=== PATIENT | female | born 1945 | race African-American/Black ===

== ENCOUNTER 2022-08-07 16:58 | Inpatient (IN) | payer MEDICARE, OTHER ==
[~2022-08-07] VITALS: Ht 152.4 cm; Wt 83.0 kg
[2022-08-07] MEDS ORDERED: LEVO100T10 PO (17:31)
[2022-08-07] MEDS ORDERED: MIRT-94 PO (17:31)
[2022-08-07] MEDS ORDERED: RIVA10TA PO (17:31)
[2022-08-07] MEDS ORDERED: ONDA4TAB11 PO (17:31)
[2022-08-07] MEDS ORDERED: POTA-88 PO (17:31)
[2022-08-07] MEDS ORDERED: ROSU10TA2 PO (17:31)
[2022-08-07] MEDS ORDERED: PRIM250T32 PO (17:31)
[2022-08-07] MEDS ORDERED: FLUO20CA42 PO (17:31)
[2022-08-07] MEDS ORDERED: [UNRECOGNIZED DRUG - CODE] PO (17:31)
[2022-08-07] MEDS ORDERED: METO25TA6 PO (17:31)
--- NOTE | 2022-08-07 17:34 | NUR ---
PT IS IN ROOM #1B. DR FERNANDEZ EVALUATED THE PT.
[2022-08-07] MEDS: METOPROLOL TARTRATE 25 MG TABLET PO SCH (18:30)
--- NOTE | 2022-08-07 19:03 | NUR ---
REPORT WAS GIVEN TO M[facility] RN. PT WILL BE TRANSFERED TO U ROOM #138B AFTER 193. REPORT WAS GIVEN TO SEA FOAM KISS MAKER BUILDING EQUIPMENT OPERATOR.
--- NOTE | 2022-08-07 19:46 | NUR ---
Pt. admitted to [facility] Belongs List completed Mohini RN, Pasha RN aware of patient's arrival
--- NOTE | 2022-08-07 20:00 | NUR ---
GPS ADMISSION NOTE : Patient is a 77 year old female, brought to the ED from [facility]. The patient is on a 5150 for DTS. Per the hold, the patient verbalized that she doesn't feel safe and " Cant be honest with anyone " about suicidal thoughts because " I don't want a 5150 ". Upon face to face evaluation, this patient was anxious, disorganized and suspious. The patient refused to sign any papers, was argumentative about the unit rules and adamant that " I never said that I wanted to hurt myself. That's a lie ". Multiple medical problems noted in the chart, including Polio, wheelchair bound, fibromyalgia, HTN, DM, depression and alcoholism to name a few. The patients belongings were inventoried and a Patients Rights Handbook along with The Patient Advisement were provided. VS stable, safety stratiges remain in place. No SI at this time.
[2022-08-07] MEDS: ATORVASTATIN 20 MG TABLET PO SCH (21:00)
[2022-08-07] MEDS ORDERED: MAGNESIUM HYDROXIDE 30 ML LIQUID UDC PO PRN (22:15)
[2022-08-07] MEDS ORDERED: MAG HYDROX/AL HYDROX/SIMETH 30 ML LIQUID UDC PO PRN (22:15)
[2022-08-07 22:20] VITALS: BP 123/69
[2022-08-08] MEDS: LORAZEPAM 1 MG TABLET PO PRN (06:21)
[2022-08-08] MEDS: LEVOTHYROXINE SODIUM 100 MCG TABLET PO SCH (06:21)
[2022-08-08 07:36] VITALS: BP 108/46
[2022-08-08] MEDS ORDERED: RIVAROXABAN 10 MG TABLET PO SCH (09:00)
[2022-08-08] MEDS: METOPROLOL TARTRATE 25 MG TABLET PO SCH ×3 (09:21→20:12)
[2022-08-08] MEDS: ACETAMINOPHEN 325 MG TABLET PO PRN ×2 (09:56→20:16)
[2022-08-08] MEDS: THIAMINE HCL 100 MG TABLET PO SCH (10:22)
--- NOTE | 2022-08-08 12:19 | NUR ---
WING Initial Discharge Note: Pt currently resides alone at home located at [address] [place] [phone] ([phone]). Pt stated she wants to return home on her own upon discharge. WING will continue to work with pt, family and MD to ensure a safe and proper discharge plan.
[2022-08-08 12:33] LABS: THYROID STIMULATING HORMONE 2.381 mIU/mL (0.358-3.740)
--- NOTE | 2022-08-08 14:20 | NUR ---
GPS: Nursing Notes: Destructive Behavior To Self: Patient is awake and responding to her name, gets easily anxious when redirected, poor grooming, unkempt appearance, argumentative, stated "The 5150 is a lie.. I don't want to kill myself..", upper extremities tremors - stated "The doctor told me to take my medication with alcohol, so the tremors would stop.." impaired judgment, needs prompting to participate in therapeutic groups, unable to formulate a viable plan for self care, denies SI, continue to monitor for safety, continue with treatment plan.
--- NOTE | 2022-08-08 14:37 | NUR ---
Firearms Report: Window Shade Cutter And Mounter completed and submitted a DOJ firearms report for 5150 a danger to self certifications. A copy of report has been placed in patient chart.
[2022-08-08 16:12] VITALS: BP 126/58
[2022-08-08] MEDS: RIVAROXABAN 10 MG TABLET PO SCH (17:50)
--- NOTE | 2022-08-08 17:52 | NUR ---
GPS: Nursing Notes: Refusing Xarelto: Patient was about to take her medication when suddenly she paused and stated "I remember now, I cannot take Xarelto because I fell.. I will talk to the doctor..", explained the pros and cons of the medication, but continue to refuse her medication, continue to monitor for safety, continue with treatment plan.
[2022-08-08 19:37] VITALS: BP 112/52
[2022-08-08] MEDS: ATORVASTATIN 20 MG TABLET PO SCH (20:11)
--- NOTE | 2022-08-08 20:51 | NUR ---
GPS: Pt.is pleasant,nice and cooperative so far. Due bedtime meds taken without any problems. Denies wanting to hurt self when asked. Needs attended. Will continue to monitor.
[2022-08-09] MEDS: LEVOTHYROXINE SODIUM 100 MCG TABLET PO SCH (06:05)
[2022-08-09 07:45] VITALS: BP 124/58
[2022-08-09] MEDS: MULTIVITAMINS,THERAPEUTIC TABLET PO SCH (08:42)
[2022-08-09] MEDS: THIAMINE HCL 100 MG TABLET PO SCH (08:42)
[2022-08-09] MEDS: SERTRALINE HCL 50 MG TABLET PO SCH (08:43)
[2022-08-09] MEDS: METOPROLOL TARTRATE 25 MG TABLET PO SCH ×2 (08:49→20:48)
[2022-08-09] MEDS: ACETAMINOPHEN 325 MG TABLET PO PRN (08:50)
--- NOTE | 2022-08-09 09:55 | NUR ---
SW Discharge Update: Pt continues to state she wants to return home located at [address] [place], [place] [id number] on her own upon discharge where she resides alone. Pt is refusing home health services. Pt stated she has no family contact and has been on her own for a long time. In addition, pt stated she refuses fdc facility and other services as well.
[2022-08-09 16:10] VITALS: BP 135/48
[2022-08-09] MEDS: RIVAROXABAN 10 MG TABLET PO SCH (17:17)
--- NOTE | 2022-08-09 17:21 | NUR ---
GPS: Nursing Notes: Destructive Behavior To Self: Patient is awake and responding to her name, depressed mood and anxious affect, argumentative at times, selectively refusing her medications, stated "There is nothing wrong with my heart... And Xarelto, I do not take this medication..", explained the pros and cons of medications, but continue to refuse the medications, needs prompting to participate in therapeutic groups, moving around the unit on her w/c, unable to formulate a viable plan for self care, continue to monitor for safety, continue with treatment plan.
[2022-08-09] MEDS: ATORVASTATIN 20 MG TABLET PO SCH (20:47)
[2022-08-09 21:45] VITALS: BP 147/52
[2022-08-10] MEDS: ACETAMINOPHEN 325 MG TABLET PO PRN (00:18)
[2022-08-10] MEDS: ZOLPIDEM 5 MG TABLET PO PRN (00:18)
--- NOTE | 2022-08-10 00:18 | NUR ---
Pt requested medication for help with falling asleep, and for pain in the back of her head. Pt stated, "they have not given me any pain medication for this problem that I've had for a long time now, and they have never diagnosed me with what this problem is." 07/04 P/L. Gave Ambien 5mg for insomnia, and Tylenol 650mg for mild pain relief. Safety measures in place. Will continue to monitor.
[2022-08-10] MEDS: LEVOTHYROXINE SODIUM 100 MCG TABLET PO SCH (06:28)
[2022-08-10 07:30] VITALS: BP 119/51
[2022-08-10] MEDS: METOPROLOL TARTRATE 25 MG TABLET PO SCH ×2 (08:24→21:05)
[2022-08-10] MEDS: THIAMINE HCL 100 MG TABLET PO SCH (08:24)
[2022-08-10] MEDS: MULTIVITAMINS,THERAPEUTIC TABLET PO SCH (08:24)
[2022-08-10] MEDS: SERTRALINE HCL 50 MG TABLET PO SCH (08:25)
--- NOTE | 2022-08-10 11:09 | NUR ---
GPS Nursing notes: 14 day hold Certification: Patient place on a 5250, certification given to patient and explained. Patient was informed that a certification reviewe hearing will be held with in four days. Also, patient's right advocate will call to provide orthodontic assistant on answering his questions. The court has been notified of this certification via [facility] portal on this day.
[2022-08-10 15:15] VITALS: BP 122/59
[2022-08-10] MEDS: RIVAROXABAN 10 MG TABLET PO SCH (18:00)
--- NOTE | 2022-08-10 18:08 | NUR ---
Received pt in room awake and responding to her name. Pt is depressed, isolative and stays in her room for most of the day. Pt has poor insight .Pt is compliant with medications. Pt has unkempt appearance and refuses to shower. Pt is unable to formulate a viable plan for self care. Pt denies SI and made a verbal contract for safety with this leader writer . Pt stated "I came here to get help with my appointments not because I'm depressed or suicidal". " I need help scheduling an appointment with a dentist". " I need help finding a good complex care nurse practitioner that wont steal from me". Reassurance and emotional support provided.Safety measures still in place for safety. Continue to monitor for safety, continue with treatment plan.
--- NOTE | 2022-08-10 18:44 | NUR ---
Pt is selective with medications, pt took morning medications and refuse evening medications. Pt can be argumentative at times. Pt was argumentative when explaining the importance of being compliant with medications. Reassurance provided.
[2022-08-10 20:00] VITALS: BP 123/56
[2022-08-10] MEDS: ATORVASTATIN 20 MG TABLET PO SCH (21:05)
[2022-08-11] MEDS: ZOLPIDEM 5 MG TABLET PO PRN (00:22)
[2022-08-11] MEDS: LEVOTHYROXINE SODIUM 100 MCG TABLET PO SCH (06:11)
[2022-08-11 07:30] VITALS: BP 126/47
[2022-08-11] MEDS: MULTIVITAMINS,THERAPEUTIC TABLET PO SCH (09:00)
[2022-08-11] MEDS: THIAMINE HCL 100 MG TABLET PO SCH (09:00)
[2022-08-11] MEDS: SERTRALINE HCL 50 MG TABLET PO SCH (09:00)
[2022-08-11] MEDS: METOPROLOL TARTRATE 25 MG TABLET PO SCH ×2 (09:00→20:42)
[2022-08-11 12:55] VITALS: BP 163/72
[2022-08-11 13:00] VITALS: BP 182/77
--- NOTE | 2022-08-11 13:00 | NUR ---
Patient states that she is having a chest pain rated 10 on the scale of 1 to 10. Distributor Operator was informed and ordered HS Troponin, Hydrocodone 1 tab PO Q6PRN, Nitroglycerin 0.4 mg SL, EKG, D- Dimer, BMP, CBC.
--- NOTE | 2022-08-11 13:13 | NUR ---
Patient had court hearing today, and tobacco feeder catcher Betsy Mcleod gave 14 Day hold probable cause for GD.
[2022-08-11] MEDS ORDERED: NITROGLYCERIN 0.4 MG/TAB BOTTLE SL PRN (13:15)
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
[2022-08-11 13:32] LABS: HEMATOCRIT 39.3 % (31.2-41.9); MEAN CORPUSCULAR VOLUME 87.2 fL (75.5-95.3); PLATELET COUNT (AUTO) 353 K/uL (179-408)
[2022-08-11 13:43] LABS: CARBON DIOXIDE 28 mmol/L (21-32); CHLORIDE 100 mmol/L (98-107); GLUCOSE 105 mg/dL (74-106); UREA NITROGEN, BLOOD 24 mg/dL (7-18)
[2022-08-11 15:30] VITALS: BP 155/76
[2022-08-11] MEDS: HYDROCODONE/APAP 5-325MG TABLET PO PRN (15:33)
[2022-08-11 16:00] VITALS: BP 144/72
[2022-08-11] MEDS: RIVAROXABAN 10 MG TABLET PO SCH (18:00)
--- NOTE | 2022-08-11 19:40 | NUR ---
Pt is argumentative , labile, intrusive and manipulative. Pt gets easily irritable with staff when she does not gets her way. Pt is not compliant with medication and questions each of her medications and states " i do not take those medications" My doctor told me not to take them" . Pt manipulates her roommate in to not taking her medications and sends her to ask staff for snack or water for her , instead of her asking for her self. Reassurance and emotional support provided. Safety measures still in place. Continue to monitor for safety, continue with treatment plan.
[2022-08-11 19:53] VITALS: BP 126/63
[2022-08-11] MEDS: ATORVASTATIN 20 MG TABLET PO SCH (20:42)
[2022-08-12] MEDS: METOPROLOL TARTRATE 25 MG TABLET PO SCH ×2 (01:20→21:00)
--- NOTE | 2022-08-12 02:12 | NUR ---
Patient has been anxious, manipulative, demanding and intrusive. This patient was heard telling the room mate"Don't take the medications from these people. They are trying to hurt you. If you change rooms, we are not friends anymore. ". This underwriter moved the room mate per request and to provide a quieter environment for both. Soon after that, the patient had a anxiety attack, was asking for this med and that, cold cloth, to be taken to the ED, etc. When this underwriter tried to get her VS in order to give the " Metoprol now, or I am going to " ! The patient proceeded to rip the cuff off her arm , in a tantrum like fashion, throw the washcloth on the floor , and climbed into bed. The VS were obtained and they were 133/90, HR 79. The patient eventually calmed down ,after a lengthy attention seeking episode. Safety Stratiges are in place. The patient continues to refuse medications for anxiety or sleep and also tries to manipulate the staff and other patient's , whenever possible.
[2022-08-12] MEDS: LEVOTHYROXINE SODIUM 100 MCG TABLET PO SCH (06:41)
[2022-08-12 07:09] VITALS: BP 97/55
[2022-08-12] MEDS: THIAMINE HCL 100 MG TABLET PO SCH (08:56)
[2022-08-12] MEDS: MULTIVITAMINS,THERAPEUTIC TABLET PO SCH (08:56)
[2022-08-12] MEDS: SERTRALINE HCL 50 MG TABLET PO SCH ×2 (08:56→09:00)
--- NOTE | 2022-08-12 14:10 | NUR ---
Nursing- Uses wheel chair to roam around safety reviewed emphasized. Selective with routine meds. claimed she does not take any Psych med. she wants to leave, she does not belong here, she can take care of herself, req. to take a taxi ,drop by the bank and good to go per pt. Encouraged to attend her group activity , refused. Denies any discomfort, no chest pain
[2022-08-12 15:16] VITALS: BP 119/51
[2022-08-12 20:20] VITALS: BP 137/49
[2022-08-12] MEDS: ATORVASTATIN 20 MG TABLET PO SCH (20:53)
[2022-08-12] MEDS: RIVAROXABAN 10 MG TABLET PO SCH (21:00)
--- NOTE | 2022-08-12 21:07 | NUR ---
Patient refused xarelto and metoprolol meds, patient stated "she only take metoprolol when she needs it", and scared to take xarelto meds afraid to bleed, explained to the patient that she needs both meds for her heart problem and blood pressure, strongly refused, get agitated, cont to monitor.
--- NOTE | 2022-08-13 05:46 | NUR ---
Patient stayed in her room most the shift, calm at this time, no complains of pain, patient brp, remains uncooperative with medications, cont to monitor.
[2022-08-13] MEDS: LEVOTHYROXINE SODIUM 100 MCG TABLET PO SCH (06:41)
[2022-08-13 07:54] VITALS: BP 146/51
[2022-08-13] MEDS: MULTIVITAMINS,THERAPEUTIC TABLET PO SCH (08:36)
[2022-08-13] MEDS: METOPROLOL TARTRATE 25 MG TABLET PO SCH ×2 (08:36→20:33)
[2022-08-13] MEDS: THIAMINE HCL 100 MG TABLET PO SCH (08:37)
[2022-08-13] MEDS: SERTRALINE HCL 50 MG TABLET PO SCH (08:45)
--- NOTE | 2022-08-13 09:00 | NUR ---
Nursing - Hesitancy taking her routine am medications , selective witj medications , administered ,reviewed by the Quality Assurance Coach (from [facility]) with their Alarm Installation Technician. Alert, oriented , interactive , making her needs known. Stays in bed most of the time during morning, able to transfers self ind. wheel chair to bed . Ind. with wheel chair propulsion. Safety continue to emphasized, patient verbalized understanding.
--- NOTE | 2022-08-13 14:29 | NUR ---
Nursing- Patient requested to have her phone from the safe just to get some telephone numbers - but unable to get at this time r/t phone needed to be charge ( Charging by the Nurses station-printer) will try to charge for now, till have enough power to get information needed by patient, staff were informed. (Dark blue cell phone with black cord for charging)
--- NOTE | 2022-08-13 15:38 | NUR ---
Nursing - Requesting to bathe self using readybath , and own cream, informed patient Hosp. does not carry a readybath , offered to use wash cloth , claimed she does not use wash cloth refused to shower , never had shower for a long time per patient .Patient gets intrusive .
[2022-08-13 16:08] VITALS: BP 116/58
[2022-08-13] MEDS: RIVAROXABAN 10 MG TABLET PO SCH (17:34)
--- NOTE | 2022-08-13 18:47 | NUR ---
Nursing - When tried to get patient's phone back , noted unable to find the phone per patient she left it on top of her blanker. Academy Education Director was called and reported was happened to her phone. Checked under her bed and her roommates bed, not found. Tried to call her phone toring, was noted phone was in the trash bag of room # 137 . Claimed not sure who took the phone and who threw it to the trash. Informed patient reason why we dont let patient have their own phone. Patient phone list given to her . Patient;s put back in the safe, informed patient will not get her phone till discharge , verbalized understanding
[2022-08-13 20:22] VITALS: BP 106/50
[2022-08-13] MEDS: ATORVASTATIN 20 MG TABLET PO SCH (20:30)
[2022-08-13] MEDS: HYDROCODONE/APAP 5-325MG TABLET PO PRN (22:37)
--- NOTE | 2022-08-13 22:40 | NUR ---
Patient complaining of headaches and neck pain, requested a Narco for pain, 11/03, given as ordered. Patient noted with slight anxiety and redirect behavior and she able to follow, cont to monitor.
[2022-08-14] MEDS: ZOLPIDEM 5 MG TABLET PO PRN (01:12)
[2022-08-14] MEDS: LEVOTHYROXINE SODIUM 100 MCG TABLET PO SCH (06:26)
--- NOTE | 2022-08-14 06:54 | NUR ---
Patient alert awake, no further complain of pain/headaches, patient calm, still non compliant with medications, cont to monitor.
[2022-08-14 08:03] VITALS: BP 124/53
[2022-08-14] MEDS: METOPROLOL TARTRATE 25 MG TABLET PO SCH ×3 (08:32→21:00)
[2022-08-14] MEDS: THIAMINE HCL 100 MG TABLET PO SCH (08:32)
[2022-08-14] MEDS: MULTIVITAMINS,THERAPEUTIC TABLET PO SCH (08:33)
[2022-08-14] MEDS: SERTRALINE HCL 50 MG TABLET PO SCH ×2 (08:33→09:00)
[2022-08-14] MEDS: ARIPIPRAZOLE 2 MG TABLET PO SCH ×2 (10:15→16:37)
--- NOTE | 2022-08-14 14:46 | NUR ---
patient is alert and oriented x3,selective with her routine medications, insisting still, she does not need any anti depressant mediations she denies being depressed, refused HTN medication saying i only uses as needs.assisted with all ADLS continue monitoring for safety .
[2022-08-14] MEDS: RIVAROXABAN 10 MG TABLET PO SCH (16:38)
[2022-08-14 17:16] VITALS: BP 131/78
[2022-08-14 19:55] VITALS: BP 135/51
[2022-08-14] MEDS: ATORVASTATIN 20 MG TABLET PO SCH (20:56)
--- NOTE | 2022-08-14 21:00 | NUR ---
Received patient up in the wheelchair, patient talking to other patient in the TV room, patient continue to refused Metoprolol and other psychotropic meds, MD was aware of the patient behavior, patient refused showers, prefer to do her own things, patient noted easily get excited or anxious, provide quiet room, assisted her rooms out the room when roommates becomes restless, cont to monitor.
[2022-08-15] MEDS: LEVOTHYROXINE SODIUM 100 MCG TABLET PO SCH (06:21)
[2022-08-15 07:43] VITALS: BP 152/76
[2022-08-15] MEDS: ARIPIPRAZOLE 2 MG TABLET PO SCH ×4 (08:08→16:47)
[2022-08-15] MEDS: SERTRALINE HCL 50 MG TABLET PO SCH ×2 (08:09→08:48)
[2022-08-15] MEDS: MULTIVITAMINS,THERAPEUTIC TABLET PO SCH ×2 (08:09→08:48)
[2022-08-15] MEDS: THIAMINE HCL 100 MG TABLET PO SCH (08:09)
[2022-08-15] MEDS: METOPROLOL TARTRATE 25 MG TABLET PO SCH ×2 (08:46→20:35)
--- NOTE | 2022-08-15 14:01 | NUR ---
patient is alert and oriented x3,selective with her routine medications, insisting still, she does not need any anti depressant mediations she denies being depressed.took Abilify after spoke with psychiatrist .assisted with all ADLS continue monitoring for safety .
[2022-08-15 16:09] VITALS: BP 128/54
[2022-08-15] MEDS: RIVAROXABAN 10 MG TABLET PO SCH (16:48)
[2022-08-15 19:53] VITALS: BP 142/58
[2022-08-15] MEDS: ATORVASTATIN 20 MG TABLET PO SCH (20:34)
[2022-08-16] MEDS: ZOLPIDEM 5 MG TABLET PO PRN ×2 (01:16→23:56)
--- NOTE | 2022-08-16 04:54 | NUR ---
Patient asleep but arousable, no complain of pain, patient took all po meds from this shift, Patient does not really sleep, slept 2.5 hours only, non compliant with psych meds, aware, refused showers. cont to encourage.
[2022-08-16] MEDS: LEVOTHYROXINE SODIUM 100 MCG TABLET PO SCH (06:29)
--- NOTE | 2022-08-16 07:19 | NUR ---
GPS Nursing notes: Patient is lying in bed asleep with no S/S discomforts. fall and safety precaution observed. Will continue to monitor.
[2022-08-16 08:27] VITALS: BP 113/72
[2022-08-16] MEDS: SERTRALINE HCL 50 MG TABLET PO SCH (09:00)
[2022-08-16] MEDS: METOPROLOL TARTRATE 25 MG TABLET PO SCH ×2 (09:00→20:28)
[2022-08-16] MEDS: MULTIVITAMINS,THERAPEUTIC TABLET PO SCH (09:00)
[2022-08-16] MEDS: THIAMINE HCL 100 MG TABLET PO SCH (09:07)
[2022-08-16] MEDS: ARIPIPRAZOLE 2 MG TABLET PO SCH ×2 (09:07→16:15)
--- NOTE | 2022-08-16 09:15 | NUR ---
GPS Nursing notes: Patient refused BP medication and Multi-Vit. , Per Patient "I dont need it, I will only take Abilify because so I can go Home". Educated patient on the importance of taking Blood pressure medication, but continues to refused.
--- NOTE | 2022-08-16 10:24 | NUR ---
WING Discharge Update: Pt continues to state she wants to return home located at [address] [facility] [address] on her own upon discharge where she resides alone. WING contacted pt's insurance [facility] [facility] [phone] and spoke with Aliza from [employer] [phone] who helped arrange pt's transportation to return home upon discharge. Aliza stated authorization from the insurance is required and therefore, requested it. Aliza is informed that pt uses a wheelchair and walks minimally. Aliza requested a wheelchair accessible vehicle for day of discharge. Aliza informed this WING to call back prior to discharge to check on authorization. WING will continue to follow-up to ensure a safe and proper discharge plan for the pt. DNP, Dr. Mccauley is aware.
--- NOTE | 2022-08-16 12:49 | NUR ---
GPS Nursing Notes: patient is in room, staying to herself, social with selective peers, denies pain or discomforts, 100% of meal intake, took Abilify this morning, stated she wants to be discharge. Dr Mccauley aware and spoke with patient , fall and safety precautions implemented, emotional support provide.
[2022-08-16] MEDS: LORAZEPAM 1 MG TABLET PO PRN (15:15)
--- NOTE | 2022-08-16 15:32 | NUR ---
GPS Nursing notes: Patient is anxious, Patient stated , "I am not going home this week, I feel anxious, give me what ever medication that will help me relax". Prn given as ordered for anxiety, will continue to monitor.
[2022-08-16 16:07] VITALS: BP 143/68
[2022-08-16] MEDS: RIVAROXABAN 10 MG TABLET PO SCH (17:10)
--- NOTE | 2022-08-16 18:14 | NUR ---
GPS Nursing notes: Patient is calm and quiet, no S/S of anxiety will continue to monitor.
[2022-08-16] MEDS: ATORVASTATIN 20 MG TABLET PO SCH (20:28)
[2022-08-16 20:56] VITALS: BP 130/43
--- NOTE | 2022-08-17 04:55 | NUR ---
Received patient in her bed, A&0x3, patient verbalizing her feelings in regards her stay in the unit. Attentive listening in placed. Patient requesting for early discharge, informed her about writ petition. She denies SI. Patient med compliant. Patient is calm and cooperative. Prn Ambien given. Effective. Patient slept well this shift. Safety precautions in placed.
[2022-08-17] MEDS: LEVOTHYROXINE SODIUM 100 MCG TABLET PO SCH (06:07)
[2022-08-17 08:06] VITALS: BP 129/52
[2022-08-17] MEDS: THIAMINE HCL 100 MG TABLET PO SCH (08:54)
[2022-08-17] MEDS: MULTIVITAMINS,THERAPEUTIC TABLET PO SCH ×2 (08:54→09:00)
[2022-08-17] MEDS: ARIPIPRAZOLE 2 MG TABLET PO SCH (08:54)
[2022-08-17] MEDS: SERTRALINE HCL 50 MG TABLET PO SCH ×2 (08:54→09:00)
[2022-08-17] MEDS: METOPROLOL TARTRATE 25 MG TABLET PO SCH ×3 (08:55→21:01)
[2022-08-17 16:30] VITALS: BP 119/62
[2022-08-17] MEDS ORDERED: ARIPIPRAZOLE 2 MG TABLET PO SCH (17:00)
[2022-08-17] MEDS: ARIPIPRAZOLE 5 MG TABLET PO SCH (17:31)
[2022-08-17] MEDS: RIVAROXABAN 10 MG TABLET PO SCH (17:34)
--- NOTE | 2022-08-17 18:00 | NUR ---
Received pt in room sitting in chair, pt is calm up on approach. pt is still selective with medications and chooses which ones to take. Pt has unkept appearance and is still refusing to shower Stating " I have a special cream i use at home to shower". pt can be argumentative at times, specially when it comes to medications and showering. Pt socializes with selective peers but does not attends group activities . Pt uses the wheelchair to wheel her self around the unit. Pt denies SI and verbally contracted for safety. Reassurance and emotional support provided. Safety measures in place . Continue to monitor for safety, continue with treatment plan.
[2022-08-17 20:19] VITALS: BP 142/69
--- NOTE | 2022-08-17 20:30 | NUR ---
Received patient seated in the wheelchair, calm and cooperative with medication, took all 2100 medications, Patient socialized with other patient, patient appears enjoy the company of other patient. Patient still refused to shower, cont to offer.
[2022-08-17] MEDS: ATORVASTATIN 20 MG TABLET PO SCH (21:01)
[2022-08-17] MEDS: ZOLPIDEM 5 MG TABLET PO PRN (21:52)
--- NOTE | 2022-08-18 05:46 | NUR ---
Patient slept most of the night, no complain of pain, continent of bowel and bladder, patient calm at this time, blanket provided complaining of cold in the room, room temp was adjusted accordingly, cont to monitor.
[2022-08-18] MEDS: LEVOTHYROXINE SODIUM 100 MCG TABLET PO SCH (06:15)
[2022-08-18 07:30] VITALS: BP 122/40
[2022-08-18] MEDS: MULTIVITAMINS,THERAPEUTIC TABLET PO SCH (09:00)
[2022-08-18] MEDS: ARIPIPRAZOLE 5 MG TABLET PO SCH (09:53)
[2022-08-18 09:55] VITALS: BP 122/40
[2022-08-18] MEDS: METOPROLOL TARTRATE 25 MG TABLET PO SCH (09:55)
[2022-08-18] MEDS: THIAMINE HCL 100 MG TABLET PO SCH (09:55)
[2022-08-18 11:09] LABS: CARBON DIOXIDE 27 mmol/L (21-32); CHLORIDE 103 mmol/L (98-107); CREATININE 0.8 mg/dL (0.6-1.3); GLUCOSE 142 mg/dL (74-106); MAGNESIUM 1.9 mg/dL (1.8-2.4); POTASSIUM 4.4 mmol/L (3.5-5.1); UREA NITROGEN, BLOOD 17 mg/dL (7-18)
--- NOTE | 2022-08-18 11:38 | NUR ---
Discharge Note: Pt will be discharged home located at [address] [place] [address] ([phone]) via [employer] [phone] non-medical transportation at 2:30PM. Pt is aware and agreeable with discharge plan. Pt refused staff to contact pts daughter. Pt is alert and oriented x4 and cleared by the psychiatrist, Dr. Munoz and DNP, Dr. Mccauley to continue care on her own at home. Pt denies any suicidal or homicidal ideation. Pt will follow-up with her outpatient Psychiatrist, Dr. Feldman [phone] and Flavor Extractor, Dr. [place] located at [address] [place] [address] ([phone]). Pt presents with calm mood and congruent affect. PHARMACY: [address] [place] [address] ([phone]). referred pt to [facility] [address] [facility] [address] [place] [address] ([phone]).
--- NOTE | 2022-08-18 12:44 | NUR ---
Nursing- Discharge planning in progress, patient was well informed of her discharge back to her home in [place], [place]. IPer Mechanical Engineering Officer, [employer] arranged transportation at 1430 this pm
--- NOTE | 2022-08-18 13:55 | NUR ---
Nursing - Reviewed discharge instructions, prescriptions/medications, safety emphasized, skin care, diet, f/u with her PMD as well as psychiatrist, patient verbalized understanding. Hesitant to sign instructions , per patient," im not going to take any of those medications anyways, i have my own Doctors". All belongings /valuables (Cell phone with social science manager, black purse , toiletries given back to patient. 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 Patient has own wheel chair , no leg rest. Patient discharged in good spirit , with no new complaints noted.
== END 2022-08-18 14:00 | disposition home or self-care (01) | DRG 880 ==
LOC: ER 17:11 → GPS 18:18
PROVIDERS: ADMIT Psychiatry & Neurology Psychiatry; ATTEND Nurse Practitioner Acute Care
DX: F41.9 Anxiety disorder, unspecified (principal); R45.851 Suicidal ideations; F32.9 Major depressive disorder, single episode, unspecified; E66.01 Morbid (severe) obesity due to excess calories; E03.9 Hypothyroidism, unspecified; Z99.3 Dependence on wheelchair; F10.20 Alcohol dependence, uncomplicated; I48.0 Paroxysmal atrial fibrillation; Z88.6 Allergy status to analgesic agent; Z88.8 Allergy status to other drugs, medicaments and biological substances; G25.0 Essential tremor; I10 Essential (primary) hypertension; Z68.37 Body mass index [BMI] 37.0-37.9, adult; Z79.899 Other long term (current) drug therapy; Z91.148 Patient's other noncompliance with medication regimen for other reason; Z79.01 Long term (current) use of anticoagulants; E11.9 Type 2 diabetes mellitus without complications; E78.5 Hyperlipidemia, unspecified; Z86.12 Personal history of poliomyelitis; I25.10 Atherosclerotic heart disease of native coronary artery without angina pectoris; Z82.49 Family history of ischemic heart disease and other diseases of the circulatory system; R51.9 Headache, unspecified; R07.9 Chest pain, unspecified; R79.1 Abnormal coagulation profile
CPT/HCPCS: 36415; 70450; 71045; 83735; 84443; 84484; 85025; 93005